=== PATIENT | male | born 1945 | race Caucasian/White ===

== ENCOUNTER → 2017-11-13 | Outpatient (CLI) | payer OTHER ==
[~2017-11-13] MED LIST: ADULT LOW DOSE81 MG PO; BENICAR; BENICAR 5 MG5 M1 PO; BENICAR20 MG PO; CENTRUM SILVER1 EAC2 PO; COLACE100 MG PO; GABAPENTIN; KEFLEX500 MG PO; MIRALAX17 GM PO; NEURONTIN600 MG PO; NORCO 5-325 TA1 EACH PO; OXECTA5 MG PO; PERCOCET 5-3251 EACH PO; PREDNISONE 1 MG1 M1 PO; TUMS PO; XARELTO10 MG PO
== END ==
LOC: MRI 12:55
DX: M51.36 Other intervertebral disc degeneration, lumbar region (principal); M51.34 Other intervertebral disc degeneration, thoracic region; R29.898 Other symptoms and signs involving the musculoskeletal system; N18.2 Chronic kidney disease, stage 2 (mild)

== ENCOUNTER → 2020-01-14 | Outpatient (CLI) | payer OTHER | LOC: SJCVCIMAG 12-10 12:17 | DX: I21.19 ST elevation (STEMI) myocardial infarction involving other coronary artery of inferior wall (principal); I45.2 Bifascicular block; I13.10 Hypertensive heart and chronic kidney disease without heart failure, with stage 1 through stage 4 chronic kidney disease, or unspecified chronic kidney disease; I71.4 Abdominal aortic aneurysm, without rupture; I08.0 Rheumatic disorders of both mitral and aortic valves; R94.31 Abnormal electrocardiogram [ECG] [EKG]; N18.2 Chronic kidney disease, stage 2 (mild); I77.89 Other specified disorders of arteries and arterioles; M19.90 Unspecified osteoarthritis, unspecified site; Z90.49 Acquired absence of other specified parts of digestive tract; Z79.899 Other long term (current) drug therapy; Z87.891 Personal history of nicotine dependence ==

== ENCOUNTER → 2020-01-20 | Outpatient (CLI) | payer OTHER | LOC: CAT 10:32 | DX: Z13.6 Encounter for screening for cardiovascular disorders (principal); I25.10 Atherosclerotic heart disease of native coronary artery without angina pectoris; E78.00 Pure hypercholesterolemia, unspecified ==

== ENCOUNTER → 2020-02-14 | Outpatient (CLI) | payer OTHER | LOC: SJCVCIMAG 09:12 | PROVIDERS: ATTEND Internal Medicine Cardiovascular Disease | DX: I35.0 Nonrheumatic aortic (valve) stenosis (principal); I10 Essential (primary) hypertension ==

== ENCOUNTER → 2020-09-27 | Outpatient (CLI) | payer OTHER | LOC: SJCVC 10:19 | PROVIDERS: ATTEND Internal Medicine Cardiovascular Disease | DX: R94.31 Abnormal electrocardiogram [ECG] [EKG] (principal); I45.10 Unspecified right bundle-branch block; I63.9 Cerebral infarction, unspecified; E78.00 Pure hypercholesterolemia, unspecified; I35.0 Nonrheumatic aortic (valve) stenosis; I10 Essential (primary) hypertension; I71.4 Abdominal aortic aneurysm, without rupture; G62.9 Polyneuropathy, unspecified; R26.89 Other abnormalities of gait and mobility; Z79.899 Other long term (current) drug therapy; Z87.891 Personal history of nicotine dependence ==

== ENCOUNTER → 2020-10-31 | Outpatient (CLI) | payer OTHER | LOC: SJCVC 12:41 | PROVIDERS: ATTEND Internal Medicine Cardiovascular Disease | DX: R94.31 Abnormal electrocardiogram [ECG] [EKG] (principal); I45.2 Bifascicular block; I35.0 Nonrheumatic aortic (valve) stenosis; I63.9 Cerebral infarction, unspecified; G62.9 Polyneuropathy, unspecified; I10 Essential (primary) hypertension; E78.00 Pure hypercholesterolemia, unspecified; I71.4 Abdominal aortic aneurysm, without rupture; Z79.82 Long term (current) use of aspirin; Z79.899 Other long term (current) drug therapy; Z87.891 Personal history of nicotine dependence ==

== ENCOUNTER → 2021-05-15 | Outpatient (CLI) | payer OTHER | LOC: SJCVCIMAG 12:34 | PROVIDERS: ATTEND Internal Medicine Cardiovascular Disease | DX: R94.31 Abnormal electrocardiogram [ECG] [EKG] (principal); I08.3 Combined rheumatic disorders of mitral, aortic and tricuspid valves; I45.10 Unspecified right bundle-branch block; I49.5 Sick sinus syndrome; I45.2 Bifascicular block; I63.9 Cerebral infarction, unspecified; I10 Essential (primary) hypertension; E78.00 Pure hypercholesterolemia, unspecified; G62.9 Polyneuropathy, unspecified; I71.4 Abdominal aortic aneurysm, without rupture; R26.89 Other abnormalities of gait and mobility; M19.90 Unspecified osteoarthritis, unspecified site; Z87.891 Personal history of nicotine dependence; Z72.89 Other problems related to lifestyle; Z79.899 Other long term (current) drug therapy; Z88.1 Allergy status to other antibiotic agents; Z88.8 Allergy status to other drugs, medicaments and biological substances; Z88.5 Allergy status to narcotic agent ==